=== PATIENT | female | born 1930 | race Caucasian/White ===

== ENCOUNTER → 2016-12-28 | Outpatient (CLI) | payer MEDICARE, OTHER ==
[~2016-12-28] MED LIST: CALCIUM500 MG PO; DIOVAN80 MG PO; K-TAB OR KLOR-10 MEQ PO; MULTI-DAY PLUS1 EACH PO; NORVASC2.5 MG PO; PRILOSEC20 MG PO; TOPROL XL 5050 MG PO; VITAMIN D-32000 UNI1 PO
== END | disposition disaster alternative care site (69) ==
LOC: GRAD 13:00
DX: R07.81 Pleurodynia (principal); M89.9 Disorder of bone, unspecified; M43.8X6 Other specified deforming dorsopathies, lumbar region; K80.20 Calculus of gallbladder without cholecystitis without obstruction; K44.9 Diaphragmatic hernia without obstruction or gangrene; Z98.890 Other specified postprocedural states; Z85.3 Personal history of malignant neoplasm of breast; Z90.12 Acquired absence of left breast and nipple

== ENCOUNTER → 2017-01-12 | Outpatient (CLI) | payer MEDICARE, OTHER | END | disposition disaster alternative care site (69) | LOC: GRAD 09:50 | DX: R07.81 Pleurodynia (principal); C50.112 Malignant neoplasm of central portion of left female breast; M47.896 Other spondylosis, lumbar region; M19.012 Primary osteoarthritis, left shoulder; M19.011 Primary osteoarthritis, right shoulder; R93.7 Abnormal findings on diagnostic imaging of other parts of musculoskeletal system | CPT/HCPCS: A9503 ==